=== PATIENT | female | born 2000 | race Hispanic/Latino ===

== ENCOUNTER 2021-01-20 15:16 | Emergency (ER) | payer BC, OTHER ==
[2021-01-20 16:26] LABS: #Eosinphils 0.3 10x3/uL (0.0-0.5); #Monocytes 0.7 10x3/uL (0.0-1.1); #Neutrophils 8.8 10x3/uL (1.5-8.4); %Basophils 0.3 % (0.0-2.0); %Eosinophils 2.1 % (0.0-6.0); %Lymphocytes 21.3 % (18.0-47.0); %Monocytes 5.7 % (0.0-10.0); %Neutrophils 70.3 % (40.0-75.0); Hemoglobin 12.9 g/dL (12.0-15.5); Mean Corpuscular HGB CONC 33.5 g/dL (32.0-36.0); Mean Corpuscular Hemoglobin 28.4 pg (27.0-33.0); Mean Corpuscular Volume 84.6 fl (81.6-98.3); Mean Platelet Volume 9.2 fl (7.4-10.4); Platelet Count 384 10x3/uL (150-450); RBC Distribution Width 14.4 % (11.5-14.5); Red Blood Cell (RBC) Count 4.55 10x6/uL (3.90-5.03); White Blood Cell (WBC) Count 12.6 10x3/uL (3.5-10.5)
[2021-01-20 17:03] LABS: ALT (SGPT) 22 U/L (8-55); AST (SGOT) 18 U/L (5-34); Albumin 4.2 g/dL (3.5-5.0); Alkaline Phosphatase 79 U/L (40-100); Anion Gap 9 mmol/L (10-20); BUN (Urea Nitrogen) 8 mg/dL (7.0-18.7); Bilirubin, Total 0.2 mg/dL (0.2-1.2); Calc. Creatinine Clearance 0 mL/min (70-130); Calcium 9.3 mg/dL (7.8-10.44); Carbon Dioxide 29 mmol/L (22-29); Chloride 106 mmol/L (98-107); Globulin 3.3 g/dL (2.4-3.5); Glucose 95 mg/dL (70-105); Potassium 3.7 mmol/L (3.5-5.1); Protein, Total 7.5 g/dL (6.0-8.3); Sodium 140 mmol/L (136-145)
[2021-01-20 17:12] LABS: Bilirubin Neg (Negative); Blood, Urine 250 (Negative); Clarity Bloody (Clear); Glucose, Urine (Dipstick) Normal (Negative); Ketone, Urine Negative (Negative); Leukocyte 500 (Negative); Nitrite Negative (Negative); Protein, Urine (Dipstick) 100 mg/dl (Neg-Trace); Specific Gravity, Urine 1.005 (1.002-1.036); Urobilinogen Normal mg/dL (Less than 2)
[2021-01-20 17:46] LABS: RBC/HPF Greater than 50 HPF (0-3)
[2021-01-20 17:47] LABS: Bacteria/HPF Rare-Few HPF (None Seen)
== END 2021-01-20 18:42 | disposition home or self-care (01) ==
LOC: CSHERS 15:16
DX: O20.0 Threatened abortion (principal); Z3A.01 Less than 8 weeks gestation of pregnancy
CPT/HCPCS: 36415; 76856; 80053; 81003; 81015; 84702; 85025; 86900; 86901

== ENCOUNTER 2021-10-05 16:24 | Day surgery (SDC) | payer BC, OTHER ==
[2021-10-05 16:59] VITALS: BMI 39.9
[2021-10-05] MEDS ORDERED: hydrALAZINE 20 MG/ML VIAL SLOW IVP PRN (17:49)
== END 2021-10-05 17:50 | disposition home or self-care (01) ==
LOC: CSHLD/OP 16:24
PROVIDERS: ATTEND Student in an Organized Health Care Education/Training Program
DX: O36.8120 Decreased fetal movements, second trimester, not applicable or unspecified (principal); O35.1XX0 Maternal care for (suspected) chromosomal abnormality in fetus, not applicable or unspecified; Z3A.22 22 weeks gestation of pregnancy; Z79.82 Long term (current) use of aspirin
CPT/HCPCS: 99282

== ENCOUNTER 2021-10-19 17:59 | Inpatient (IN) | payer BC, OTHER ==
[2021-10-19] MEDS ORDERED: Ondansetron PF 4 MG/2 ML Vial IVP PRN (18:12)
[2021-10-19] MEDS ORDERED: Promethazine HCl 25 MG/ML VIAL IM PRN (18:12)
[2021-10-19] MEDS ORDERED: Acetaminophen 500 MG TAB PO PRN (18:12)
[2021-10-19] MEDS ORDERED: hydrALAZINE 20 MG/ML VIAL SLOW IVP PRN (18:12)
[2021-10-19] MEDS ORDERED: Lactated Ringer's 1,000 ML IV SCH (18:15)
[2021-10-19] MEDS: Betamet Acet/Betamet Na Ph 30 MG/5 ML VIAL IM SCH (19:47)
[2021-10-19 20:16] LABS: Fetal Membranes Rupture No Membranes Rupture (No Rupture)
[2021-10-19] MEDS: Lactated Ringer's 1,000 ML IV SCH (20:30)
[2021-10-19 22:28] LABS: SARS-CoV-2 NAA Rapid Test Not Detected (NotDetected)
[2021-10-20] MEDS: Lactated Ringer's 1,000 ML IV SCH ×2 (04:50→23:22)
[2021-10-20] MEDS ORDERED: Calcium Gluconate 4.6 MEQ in Sodium Chloride 0.9% 100 ML IVPB PRN (15:23)
[2021-10-20] MEDS ORDERED: Magnesium Sulfate 20 gm/500 ml 20 GM/500 ML BAG IVPB SCH (15:30)
[2021-10-20] MEDS ORDERED: Magnesium Sulfate 20 GM/WATER 500 ML BAG IVPB SCH (15:30)
[2021-10-20] MEDS ORDERED: Magnesium Sulfate 20 gm/500 ml 20 GM/500 ML BAG ONE (15:37)
[2021-10-20 15:38] VITALS: BMI 40.7
[2021-10-20] MEDS ORDERED: Magnesium Sulfate 20 gm/500 ml 4 GM/100 ML BAG IVPB ONE ×2 (15:45→16:00)
[2021-10-20] MEDS ORDERED: Oxytocin 10 UNITS/ML VIAL ONE (16:55)
[2021-10-20] MEDS ORDERED: ePHEDrine Sulfate 50 MG/10 ML VIAL ONE (16:55)
[2021-10-20] MEDS ORDERED: Bicitra 30 ML UDCUP PO PRN (16:56)
[2021-10-20] MEDS ORDERED: Famotidine/PF 20 mg/2ml Vial SLOW IVP PRN (16:56)
[2021-10-20] MEDS ORDERED: Poractant Alfa 240 MG/3 ML ONE (16:59)
[2021-10-20] MEDS ORDERED: CEFAZOLIN 2 GM in Premix Bag 1 BAG IVPB SCH (17:00)
[2021-10-20] MEDS ORDERED: Morphine PF 10 MG/10 ML VIAL ONE (17:01)
[2021-10-20 17:02] LABS: #Monocytes 1.4 10x3/uL (0.0-1.1); #Neutrophils 15.2 10x3/uL (1.5-8.4); %Basophils 0.2 % (0.0-2.0); %Lymphocytes 10.9 % (18.0-47.0); %Monocytes 7.2 % (0.0-10.0); %Neutrophils 80.2 % (40.0-75.0); Mean Corpuscular Hemoglobin 27.6 pg (27.0-33.0); Mean Corpuscular Volume 83.7 fl (81.6-98.3); Mean Platelet Volume 9.2 fl (7.4-10.4); Platelet Count 441 10x3/uL (150-450); RBC Distribution Width 14.5 % (11.5-14.5); Red Blood Cell (RBC) Count 3.62 10x6/uL (3.90-5.03); White Blood Cell (WBC) Count 18.9 10x3/uL (3.5-10.5)
[2021-10-20] MEDS ORDERED: Methylergonovine 0.2 MG/ML VIAL ONE ×3 (17:18)
[2021-10-20] MEDS ORDERED: Tranexamic Acid 1,000 MG/10 ML VIAL ONE (17:19)
[2021-10-20 17:43] LABS: RapidComm Collect By MD; pH (Cord, venous) 7.303 (7.250-7.350)
[2021-10-20 17:44] LABS: RapidComm Collect By MD
[2021-10-20] MEDS ORDERED: Naloxone HCl 0.4 mg/ml Vial IVP PRN ×2 (17:44)
[2021-10-20] MEDS ORDERED: Ondansetron PF 4 MG/2 ML Vial IVP PRN ×2 (17:44→19:51)
[2021-10-20] MEDS ORDERED: Fentanyl 100 MCG/2 ML VIAL SLOW IVP PRN (17:44)
[2021-10-20] MEDS ORDERED: Meperidine HCl/PF 25 MG/ML VIAL SLOW IVP PRN (17:44)
[2021-10-20] MEDS ORDERED: Naloxone HCl 0.4 mg/ml Vial IV PRN (17:44)
[2021-10-20] MEDS ORDERED: Promethazine HCl 25 MG/ML VIAL IM PRN ×2 (17:44→19:51)
[2021-10-20] MEDS ORDERED: Promethazine HCl 25 MG SUPP PR PRN (17:44)
[2021-10-20] MEDS ORDERED: Hydrocerin (Eucerin) Cream 120 gm Jar TOP PRN (17:44)
[2021-10-20] MEDS ORDERED: Ondansetron HCl/PF 4 MG/2 ML Vial IVP PRN (17:44)
[2021-10-20] MEDS ORDERED: diphenhydrAMINE 50 MG/ML VIAL IVP PRN (17:44)
[2021-10-20] MEDS ORDERED: Ketorolac Tromethamine 30 MG/ML VIAL IVP SCH (17:45)
[2021-10-20] MEDS ORDERED: Communication Order-Pharmacy FS SCH (17:45)
[2021-10-20] MEDS ORDERED: NS w/ Oxytocin 30 units 500 ML ONE (19:02)
[2021-10-20] MEDS: Ketorolac Tromethamine 30 MG/ML VIAL IVP PRN (19:50)
[2021-10-20] MEDS ORDERED: diphenhydrAMINE 25 MG CAP PO PRN (19:51)
[2021-10-20] MEDS ORDERED: Simethicone Chewable 80 MG TAB PO PRN (19:51)
[2021-10-20] MEDS ORDERED: hydrALAZINE 20 MG/ML VIAL SLOW IVP PRN (19:51)
[2021-10-20] MEDS ORDERED: Zolpidem Tartrate 5 MG TAB PO PRN (19:51)
[2021-10-20] MEDS ORDERED: Boostrix 0.5 ML (Tdap) VIAL IM ONE (19:51)
[2021-10-20] MEDS ORDERED: Bisacodyl 10 MG SUPP PR PRN (19:51)
[2021-10-20] MEDS ORDERED: Lanolin Ointment 7 GM TUBE TOP PRN (19:51)
[2021-10-20] MEDS: Ferrous Sulfate 325 MG TAB PO SCH (23:22)
[2021-10-20] MEDS: Docusate 100 MG CAP PO SCH (23:22)
[2021-10-20] MEDS: Betamet Acet/Betamet Na Ph 30 MG/5 ML VIAL IM SCH (23:23)
[2021-10-21] MEDS: Ketorolac Tromethamine 30 MG/ML VIAL IVP PRN ×2 (01:55→08:16)
[2021-10-21] MEDS ORDERED: HYDROcodone/Acetaminophen 5/325 mg Tablet PO PRN (05:45)
[2021-10-21 07:13] LABS: Hemoglobin 8.9 g/dL (12.0-15.5); Mean Corpuscular HGB CONC 33.1 g/dL (32.0-36.0); Mean Corpuscular Hemoglobin 27.6 pg (27.0-33.0); Mean Corpuscular Volume 83.5 fl (81.6-98.3); Mean Platelet Volume 8.9 fl (7.4-10.4); Platelet Count 377 10x3/uL (150-450); RBC Distribution Width 14.5 % (11.5-14.5); Red Blood Cell (RBC) Count 3.22 10x6/uL (3.90-5.03); White Blood Cell (WBC) Count 15.1 10x3/uL (3.5-10.5)
[2021-10-21] MEDS: Ferrous Sulfate 325 MG TAB PO SCH ×2 (08:16→21:15)
[2021-10-21] MEDS: Docusate 100 MG CAP PO SCH ×2 (08:16→21:15)
[2021-10-21] MEDS: Prenatal Vitamin 1 TAB PO SCH (08:16)
[2021-10-21] MEDS: HYDROcodone/Acetaminophen 5/325 mg Tablet PO PRN ×2 (12:14→17:43)
[2021-10-21] MEDS: Ibuprofen 800 MG TAB PO SCH ×2 (14:02→21:15)
[2021-10-22] MEDS: HYDROcodone/Acetaminophen 5/325 mg Tablet PO PRN ×2 (02:57→12:48)
[2021-10-22] MEDS: Ibuprofen 800 MG TAB PO SCH (05:48)
[2021-10-22 08:04] VITALS: BP 126/80; TEMP 98.3
[2021-10-22] MEDS: Ferrous Sulfate 325 MG TAB PO SCH (08:26)
[2021-10-22] MEDS: Docusate 100 MG CAP PO SCH (08:27)
[2021-10-22] MEDS: Prenatal Vitamin 1 TAB PO SCH (08:27)
== END 2021-10-22 13:20 | disposition home or self-care (01) | DRG 787 ==
LOC: CSHLD/OP 17:59 → CSHLD 18:00 → CSHPED 10-20 16:49 → CSHLD 10-20 17:01 → CSHPP 10-20 20:10
PROVIDERS: ADMIT Student in an Organized Health Care Education/Training Program; ATTEND Student in an Organized Health Care Education/Training Program
PROC: 10D00Z1 Extraction of Products of Conception, Low, Open Approach (ICD-10-PCS; principal; 2021-10-20)
PROC: 3E0234Z Introduction of Serum, Toxoid and Vaccine into Muscle, Percutaneous Approach (ICD-10-PCS; 2021-10-21)
DX: O41.03X0 Oligohydramnios, third trimester, not applicable or unspecified (principal); Z37.0 Single live birth; Z3A.24 24 weeks gestation of pregnancy; Z20.822 Contact with and (suspected) exposure to COVID-19; D62 Acute posthemorrhagic anemia; O35.1XX0 Maternal care for (suspected) chromosomal abnormality in fetus, not applicable or unspecified; O76 Abnormality in fetal heart rate and rhythm complicating labor and delivery; O99.214 Obesity complicating childbirth; O90.81 Anemia of the puerperium; O26.893 Other specified pregnancy related conditions, third trimester; Z67.41 Type O blood, Rh negative
CPT/HCPCS: 36415; 51702; 82805; 84112; 85025; 85027; 85461; 86850; 86900; 86901; 88305; 90384; 96372; J0690; J0702; J1885; J2210; J2274; J2590; J7120; U0002

== ENCOUNTER 2022-11-29 05:33 | Inpatient (IN) | payer OTHER ==
[2022-11-26 11:26] LABS: Hemoglobin 12.6 g/dL (12.0-15.5); Platelet Count 360 10x3/uL (150-450)
[2022-11-26 11:54] LABS: SARS-CoV-2 NAA Rapid Test Not Detected (NotDetected)
[2022-11-26 12:01] LABS: HBSAg Index 0.18 S/CO (0-0.99); Hep B Surf Ag Non-Reactive S/CO (NonReactive)
[2022-11-26 12:02] LABS: Syphilis Antibody Nonreactive (Nonreactive); Syphilis Antibody Index 0.05 S/CO (<1.00 Non-Reactive)
[2022-11-29] MEDS ORDERED: Famotidine/PF 20 mg/2ml Vial SLOW IVP PRN (05:44)
[2022-11-29] MEDS ORDERED: CEFAZOLIN 2 GM in Sodium Chloride 0.9% 100 ML IVPB SCH (05:44)
[2022-11-29] MEDS ORDERED: Bicitra 30 ML UDCUP PO PRN (05:44)
[2022-11-29 05:52] VITALS: BMI 43.2
[2022-11-29] MEDS ORDERED: PHENYLEPHRINE-NS 100 MCG/ML 10 ML SYRINGE ONE (06:51)
[2022-11-29] MEDS ORDERED: Morphine PF 10 MG/10 ML VIAL ONE (06:51)
[2022-11-29] MEDS ORDERED: Sodium Chloride 0.9% 100 ML ONE (06:59)
[2022-11-29] MEDS ORDERED: CEFAZOLIN 2 GM VIAL ONE (06:59)
[2022-11-29] MEDS ORDERED: Phenylephrine 40 MG/NS 250 ML 250 ML ONE (07:49)
[2022-11-29] MEDS ORDERED: Ketorolac Tromethamine 30 MG/ML VIAL ONE (07:50)
[2022-11-29] MEDS ORDERED: Dexamethasone 4 mg/ml Vial ONE (07:50)
[2022-11-29] MEDS ORDERED: Ondansetron PF 4 MG/2 ML Vial ONE (07:50)
[2022-11-29] MEDS ORDERED: Oxytocin 10 UNITS/ML VIAL ONE (08:06)
[2022-11-29] MEDS ORDERED: Naloxone HCl 0.4 mg/ml Vial IVP PRN ×2 (08:52)
[2022-11-29] MEDS ORDERED: Promethazine HCl 25 MG/ML VIAL IM PRN ×2 (08:52→10:58)
[2022-11-29] MEDS ORDERED: Moisturizing Cream (Eucerin) 113 GM JAR TOP PRN (08:52)
[2022-11-29] MEDS ORDERED: Ondansetron PF 4 MG/2 ML Vial IVP PRN ×2 (08:52→10:58)
[2022-11-29] MEDS ORDERED: diphenhydrAMINE 50 MG/ML VIAL IVP PRN (08:52)
[2022-11-29] MEDS ORDERED: Promethazine HCl 25 MG SUPP PR PRN (08:52)
[2022-11-29] MEDS ORDERED: Naloxone HCl 0.4 mg/ml Vial IV PRN (08:52)
[2022-11-29] MEDS ORDERED: Communication Order-Pharmacy FS SCH (09:00)
[2022-11-29] MEDS ORDERED: Acetaminophen 325 MG TAB PO PRN (10:58)
[2022-11-29] MEDS ORDERED: hydrALAZINE 20 MG/ML VIAL SLOW IVP PRN (10:58)
[2022-11-29] MEDS ORDERED: Boostrix 0.5 ML (Tdap) VIAL (>/=7 yrs of age) IM ONE (10:58)
[2022-11-29] MEDS ORDERED: Lanolin Ointment 7 GM TUBE TOP PRN (10:58)
[2022-11-29] MEDS ORDERED: Simethicone Chewable 80 MG TAB PO PRN (10:58)
[2022-11-29] MEDS ORDERED: Bisacodyl 10 MG SUPP PR PRN (10:58)
[2022-11-29] MEDS ORDERED: diphenhydrAMINE 25 MG CAP PO PRN (10:58)
[2022-11-29] MEDS ORDERED: Docusate 100 MG CAP PO SCH (11:15)
[2022-11-29] MEDS ORDERED: Ferrous Sulfate 325 MG TAB PO SCH (11:15)
[2022-11-29] MEDS ORDERED: Prenatal Vitamin 1 TAB PO SCH (11:15)
[2022-11-29] MEDS: Ketorolac Tromethamine 30 MG/ML VIAL IVP PRN (13:23)
[2022-11-29] MEDS ORDERED: HYDROcodone/Acetaminophen 5/325 mg Tablet PO PRN (22:00)
[2022-11-29] MEDS: Ferrous Sulfate 325 MG TAB PO SCH (22:25)
[2022-11-30] MEDS: Ketorolac Tromethamine 30 MG/ML VIAL IVP PRN (00:18)
[2022-11-30] MEDS: Docusate 100 MG CAP PO SCH ×3 (00:18→21:55)
[2022-11-30] MEDS: HYDROcodone/Acetaminophen 5/325 mg Tablet PO PRN ×4 (05:16→20:26)
[2022-11-30 05:25] LABS: Hemoglobin 9.7 g/dL (12.0-15.5); Mean Corpuscular HGB CONC 33.4 g/dL (32.0-36.0); Mean Corpuscular Hemoglobin 28.7 pg (27.0-33.0); Mean Corpuscular Volume 85.8 fl (81.6-98.3); Mean Platelet Volume 10.3 fl (7.4-10.4); Platelet Count 310 10x3/uL (150-450); RBC Distribution Width 14.5 % (11.5-14.5); Red Blood Cell (RBC) Count 3.38 10x6/uL (3.90-5.03); White Blood Cell (WBC) Count 14.6 10x3/uL (3.5-10.5)
[2022-11-30] MEDS: Ferrous Sulfate 325 MG TAB PO SCH ×2 (10:57→21:55)
[2022-11-30] MEDS: Ibuprofen 800 MG TAB PO SCH ×2 (15:07→21:55)
[2022-11-30] MEDS: Prenatal Vitamin 1 TAB PO SCH (22:54)
[2022-12-01] MEDS: HYDROcodone/Acetaminophen 5/325 mg Tablet PO PRN (00:57)
[2022-12-01] MEDS: Ibuprofen 800 MG TAB PO SCH ×2 (05:31→14:22)
[2022-12-01] MEDS: Docusate 100 MG CAP PO SCH (07:49)
[2022-12-01] MEDS: Ferrous Sulfate 325 MG TAB PO SCH (07:49)
[2022-12-01] MEDS: Prenatal Vitamin 1 TAB PO SCH (07:49)
[2022-12-01 11:32] VITALS: BP 112/61; TEMP 98.2
== END 2022-12-01 15:40 | disposition home or self-care (01) | DRG 788 ==
LOC: CSHLD 05:33 → CSHPP 10:43
PROVIDERS: ADMIT Student in an Organized Health Care Education/Training Program; ATTEND Student in an Organized Health Care Education/Training Program
PROC: 10D00Z1 Extraction of Products of Conception, Low, Open Approach (ICD-10-PCS; principal; 2022-11-29)
PROC: 3E0334Z Introduction of Serum, Toxoid and Vaccine into Peripheral Vein, Percutaneous Approach (ICD-10-PCS; 2022-11-29)
DX: O34.211 Maternal care for low transverse scar from previous cesarean delivery (principal); O26.893 Other specified pregnancy related conditions, third trimester; Z67.41 Type O blood, Rh negative; Z20.822 Contact with and (suspected) exposure to COVID-19; Z3A.37 37 weeks gestation of pregnancy; Z37.0 Single live birth; Z79.899 Other long term (current) drug therapy; O99.62 Diseases of the digestive system complicating childbirth; K66.0 Peritoneal adhesions (postprocedural) (postinfection)
CPT/HCPCS: 36415; 51702; 85014; 85018; 85027; 85049; 85461; 86780; 86850; 86870; 86900; 86901; 87340; 90384; 96372; J1100; J1885; J2274; J2405; J2590; S0028; U0002